=== PATIENT | female | born 1960 ===

== ENCOUNTER 2020-11-16 08:53 | Outpatient (CLI) | payer OTHER | END 2020-11-16 10:00 | disposition home or self-care (01) | LOC: LAB 08:53 | PROVIDERS: ATTEND Internal Medicine Cardiovascular Disease | DX: M12.9 Arthropathy, unspecified (principal); M10.9 Gout, unspecified ==

== ENCOUNTER 2021-01-28 07:09 | Outpatient (CLI) | payer OTHER | END 2021-01-28 15:00 | disposition home or self-care (01) | LOC: LAB 07:09 | PROVIDERS: ATTEND Emergency Medicine Pediatric Emergency Medicine | DX: Z03.818 Encounter for observation for suspected exposure to other biological agents ruled out (principal) ==

== ENCOUNTER 2021-03-14 08:00 | Outpatient (CLI) | payer OTHER | END 2021-03-14 08:30 | disposition home or self-care (01) | LOC: PPH VACUNA 08:00 | PROVIDERS: ATTEND Emergency Medicine Pediatric Emergency Medicine | DX: Z23 Encounter for immunization (principal) ==

== ENCOUNTER 2021-05-31 10:00 | Outpatient (CLI) | payer OTHER | END 2021-05-31 10:15 | disposition home or self-care (01) | LOC: PPH VACUNA 10:00 | PROVIDERS: ATTEND Emergency Medicine Pediatric Emergency Medicine | DX: Z23 Encounter for immunization (principal) | CPT/HCPCS: 90686; G0008 ==

== ENCOUNTER 2022-03-21 08:00 | Outpatient (CLI) | payer OTHER | END 2022-03-21 08:05 | disposition home or self-care (01) | LOC: PPH VACUNA 08:00 | PROVIDERS: ATTEND Emergency Medicine Pediatric Emergency Medicine | DX: Z23 Encounter for immunization (principal) ==

== ENCOUNTER 2023-03-20 07:25 | Outpatient (CLI) | payer OTHER | END 2023-03-20 07:35 | disposition home or self-care (01) | LOC: PPH VACUNA 07:25 | PROVIDERS: ATTEND Emergency Medicine Pediatric Emergency Medicine | DX: Z23 Encounter for immunization (principal) ==